=== PATIENT | male | born 1990 | race Caucasian/White ===

== ENCOUNTER 2016-12-28 19:41 | Emergency (ER) | payer BC ==
--- NOTE | 2016-12-28 20:23 | NUR ---
PATIENT WAS CALLED TO BE TRIAGE. PATIENT NOT PRESENT
--- NOTE | 2016-12-28 21:27 | NUR ---
Patient called several times to be traige. Patient was not present. Patient was not seen or triaged
== END 2016-12-28 21:32 | disposition left against medical advice (07) ==
LOC: ER 19:42
DX: Z53.21 Procedure and treatment not carried out due to patient leaving prior to being seen by health care provider (principal)